=== PATIENT | male | born 1950 | race Caucasian/White ===

== ENCOUNTER 2024-08-26 13:20 | Emergency (ER) | payer OTHER ==
[~2024-08-26 13:20] MED LIST: Iopamidol 370 76% 100 ML VIAL ONE
[2024-08-26 13:50] LABS: #Basophils 0.1 thou/uL (0.0-0.2); #Eosinophils 0.2 thou/uL (0.0-0.7); #Lymphocytes 1.6 thou/uL (1.20-3.40); #Monocytes 0.9 thou/uL (0.11-0.59); #Neutrophils 8.3 thou/uL (1.40-6.50); %Basophils 1.3 % (0.0-1.0); %Eosinophils 1.5 % (0.0-10.0); %Lymphocytes 14.7 % (21.0-51.0); %Monocytes 7.9 % (0.0-10.0); %Neutrophils 74.6 % (42.0-75.0); Hematocrit 47.1 % (42.0-52.0); Hemoglobin 14.5 g/dL (14.0-18.0); Mean Corpuscular HGB CONC 30.9 g/dL (32.0-36.0); Mean Corpuscular Hemoglobin 23.9 pg (27.0-31.0); Mean Corpuscular Volume 77.4 fl (78.0-98.0); Mean Platelet Volume 6.7 fL (7.4-10.4); Platelet Count 410 10x3/uL (130-400); Red Blood Cell (RBC) Count 6.09 mill/uL (4.70-6.10); White Blood Cell (WBC) Count 11.1 10x3/uL (4.8-10.8)
[2024-08-26 13:57] LABS: MDiff Complete? YES
[2024-08-26 13:59] LABS: Prothrombin Time 13.2 sec (12.0-14.7)
[2024-08-26 14:05] LABS: ALT (SGPT) 19 U/L (8-55); AST (SGOT) 21 U/L (5-34); Albumin 3.8 g/dL (3.4-4.8); Alkaline Phosphatase 93 U/L (40-110); Anion Gap 16 mmol/L (10-20); BUN (Urea Nitrogen) 15 mg/dL (8.4-25.7); Bilirubin, Total 0.5 mg/dL (0.2-1.2); Calc. Creatinine Clearance 0 mL/min (70-130); Calcium 10.1 mg/dL (7.8-10.44); Carbon Dioxide 24 mmol/L (23-31); Chloride 101 mmol/L (98-107); Estimated GFR 86; Globulin 4.2 g/dL (2.4-3.5); Glucose 169 mg/dL (83-110); Potassium 4.5 mmol/L (3.5-5.1); Sodium 136 mmol/L (136-145)
[2024-08-26 14:23] LABS: Troponin I 0.208 ng/mL (< 0.028)
[2024-08-26] MEDS ORDERED: Aspirin Chewable 81 MG TAB ONE (15:12)
[2024-08-26] MEDS ORDERED: dilTIAZem 25 MG/5 ML VIAL ONE ×2 (15:12→19:26)
[2024-08-26] MEDS ORDERED: Enoxaparin 40 MG (0.4 mL) SYRINGE ONE (15:31)
[2024-08-26 15:54] LABS: Bilirubin Negative (Negative); Blood, Urine Negative (Negative); Clarity Clear (Clear); Glucose, Urine (Dipstick) Negative (Negative); Ketone, Urine Negative (Negative); Leukocyte Negative (Negative); Nitrite Negative (Negative); Protein, Urine (Dipstick) Trace mg/dL (Neg-Trace); Specific Gravity, Urine 1.015 (1.005-1.030); Urobilinogen 0.2 mg/dL (Less than 2); pH, Urine 8.5 (5.0-9.0)
[2024-08-26 16:11] LABS: Bacteria/HPF 2+ HPF (None Seen); CAUTI Indications for Culture Alt mental st,lethar; RBC/HPF None Seen HPF (0-3); Squamous Epithelial 0-3 HPF (0-3); WBC/HPF 0-3 HPF (0-3)
[2024-08-26 16:13] LABS: Urine Culture Reflex No No
== END 2024-08-26 21:00 ==
LOC: BURERS 13:20
DX: I48.91 Unspecified atrial fibrillation (principal); R79.89 Other specified abnormal findings of blood chemistry; I10 Essential (primary) hypertension; E11.9 Type 2 diabetes mellitus without complications; I25.2 Old myocardial infarction; F17.220 Nicotine dependence, chewing tobacco, uncomplicated
CPT/HCPCS: 36415; 70450; 70496; 70498; 71260; 80053; 81001; 83735; 83880; 84484; 85025; 85610; 93005; 96372; 96374; 96376; J1650; Q9967